=== PATIENT | female | born 1950 | race Caucasian/White ===

== ENCOUNTER 2024-02-18 04:57 | Day surgery (SDC) | payer OTHER, MEDICARE ==
[2024-02-10 15:07] VITALS: BMI 24.7
[2024-02-18] MEDS ORDERED: DEXTROSE 5%-0.45% SALINE 1,000 ML IV SCH (10:00)
[2024-02-18] MEDS ORDERED: MIDAZOLAM HCL 2 MG/2 ML SINGLE DOSE VIAL ONE (10:09)
[2024-02-18] MEDS ORDERED: PROPOFOL 20 ML ONE (10:33)
[2024-02-18] MEDS: ceFAZolin SODIUM 1 GM VIAL IVPB ONE (10:41)
[2024-02-18] MEDS ORDERED: ONDANSETRON 4 MG/2 ML VIAL IVPUSH PRN (11:01)
[2024-02-18] MEDS ORDERED: LACTATED RINGERS SOLUTION 1,000 ML IV SCH (11:15)
[2024-02-18 11:45] VITALS: TEMP 98.1
[2024-02-18 11:46] VITALS: RESP 20
[2024-02-18 12:04] VITALS: BP 127/57; PULSE 62
== END 2024-02-18 12:00 | disposition home or self-care (01) ==
LOC: JASU-SURG 04:57
PROVIDERS: ATTEND Urology
PROC: 0TVC8ZZ Restriction of Bladder Neck, Via Natural or Artificial Opening Endoscopic (ICD-10-PCS; principal; 2024-02-18 09:30)
DX: N36.42 Intrinsic sphincter deficiency (ISD) (principal); N39.3 Stress incontinence (female) (male)
CPT/HCPCS: 51715; L8606; 94760